=== PATIENT | female | born 1970 | race Caucasian/White ===

== ENCOUNTER 2019-01-04 21:17 | Emergency (ER) | payer SELFPAY ==
[~2019-01-04] VITALS: Ht 149.9 cm; Wt 78.0 kg
--- OUTSIDE RECORDS SUMMARY | 2019-01-04 21:20 | XMS REPORT ---
Author [facility] Address Unknown Phone Unavailable Care Team Providers Care Channel Process Supervisor Name Role Phone Aida SAMANIEGO Unavailable Unavailable Payers Payer Name Policy Type Policy Number Effective Date Expiration Date Problems This patient has no known problems. Allergies, Adverse Reactions, Alerts Allergy Name Allergy Type Status Severity Reaction(s) Onset Date Inactive Date Treating Clinician Comments No Known Allergies DA Active U 2011-05-13 00:00:00 Medications This patient has no known medications. Results Test Description Test Time Test Comments Text Results Atomic Results Result Comments CHEST SINGLE (PORTABLE) 2018-07-31 20:20:00 [place] [address] Patient Name: SAMANTHA HULL MR #: [id number] : 1970 Age/Sex: 48/F Req #: [id number] Adm Physician: Ordered by: MAGDA SAMANIEGO MD Report #: [id number] Location: ER Room/Bed: Procedure: [id number] DX/CHEST SINGLE (PORTABLE) Exam Date: 07/31/18 Exam Time: 2019 REPORT STATUS: Signed Examination: Single AP view of the chest. COMPARISON: None. INDICATION: Chest pain DISCUSSION: Lines/tubes: None. Lungs: The lungs are well inflated and clear. No pneumonia or pulmonary edema. Pleura: No pleural effusion or pneumothorax. Heart and mediastinum: The heart and the mediastinum are unremarkable. Bones and soft tissues: No acute bony abnormalities. IMPRESSION: 1. No acute cardiopulmonary abnormalities. Signed by: Dr. Darline Young M.D. on 07/31/2018 8:21 PM Dictated By: DARLINE YOUNG MD 20 Transcribed By: KEEGAN on 07/31/182020 COPY TO: MAGDA SAMANIEGO MD
[2019-01-04] MEDS ORDERED: HYDROCODONE/APAP 10MG-325MG TAB PO NR (21:45)
--- NOTE | 2019-01-04 23:32 | Diagnostic Imaging Report ---
Right knee radiographs 3 views HISTORY: Pain. COMPARISON: None available. FINDINGS: Bones: No acute displaced fracture. Osseous alignment is within normal limits. Joints: The joint spaces are well-maintained. Minimal osteophytes. Soft tissues: The soft tissues appear unremarkable. IMPRESSION: No acute radiographic osseous abnormality. Minimal degenerative changes in the knee. Signed by: Vidal Gleason DO on 01/04/2019 11:29 PM
== END 2019-01-04 23:34 | disposition home or self-care (01) ==
LOC: ER 21:17
DX: M25.561 Pain in right knee (principal); S83.511A Sprain of anterior cruciate ligament of right knee, initial encounter; X50.1XXA Overexertion from prolonged static or awkward postures, initial encounter; R26.2 Difficulty in walking, not elsewhere classified; F31.9 Bipolar disorder, unspecified
CPT/HCPCS: 99283

== ENCOUNTER 2020-02-17 12:53 | Emergency (ER) | payer SELFPAY ==
[~2020-02-17] VITALS: Ht 149.9 cm; Wt 78.0 kg
[2020-02-17] MEDS ORDERED: IBUPROFEN 600 MG TAB PO STA (13:31)
[2020-02-17] MEDS ORDERED: DIAZEPAM 5 MG TAB PO ONE (13:45)
[2020-02-17] MEDS ORDERED: HYDROCODONE/APAP 7.5MG-325MG 1 EA TAB PO PRN (13:45)
[2020-02-17] MEDS ORDERED: ULTRAM50 MG PO (15:49)
[2020-02-17] MEDS ORDERED: NAPROXEN250 MG PO (15:49)
[2020-02-17 16:02] VITALS: BP 124/70
== END 2020-02-17 16:03 | disposition home or self-care (01) ==
LOC: ER 13:40
DX: M25.511 Pain in right shoulder (principal); S46.911A Strain of unspecified muscle, fascia and tendon at shoulder and upper arm level, right arm, initial encounter; X50.0XXA Overexertion from strenuous movement or load, initial encounter; Y92.008 Other place in unspecified non-institutional (private) residence as the place of occurrence of the external cause; F31.9 Bipolar disorder, unspecified; Z85.3 Personal history of malignant neoplasm of breast; Z86.73 Personal history of transient ischemic attack (TIA), and cerebral infarction without residual deficits
CPT/HCPCS: 99283

== ENCOUNTER 2021-03-13 20:03 | Emergency (ER) | payer SELFPAY ==
[~2021-03-13] VITALS: Ht 149.9 cm; Wt 78.0 kg
[~2021-03-13 20:03] MED LIST: NAPROXEN250 MG PO; ULTRAM50 MG PO
[2021-03-13] MEDS ORDERED: TRAMADOL HCL 50 MG TAB PO STA (20:48)
[2021-03-13] MEDS ORDERED: HYDROCODONE/APAP 10MG-325MG TAB PO ONE (21:00)
[2021-03-13] MEDS ORDERED: ULTRAM 50MG50 MG PO (22:32)
== END 2021-03-13 22:39 | disposition home or self-care (01) ==
LOC: ER 20:32
DX: M25.512 Pain in left shoulder (principal); X58.XXXA Exposure to other specified factors, initial encounter; Y92.008 Other place in unspecified non-institutional (private) residence as the place of occurrence of the external cause; F31.9 Bipolar disorder, unspecified; R94.31 Abnormal electrocardiogram [ECG] [EKG]; Z85.3 Personal history of malignant neoplasm of breast; Z86.73 Personal history of transient ischemic attack (TIA), and cerebral infarction without residual deficits
CPT/HCPCS: 72125; 99283

== ENCOUNTER 2022-04-22 14:40 | Emergency (ER) | payer OTHER ==
[~2022-04-22] VITALS: Ht 149.9 cm; Wt 78.0 kg
[~2022-04-22 14:40] MED LIST changes: +ULTRAM 50MG50 MG PO
[2022-04-22] MEDS ORDERED: KETOROLAC TROMETHAMINE 30 MG/ML VIAL IM ONE (14:45)
== END 2022-04-22 16:30 | disposition home or self-care (01) ==
LOC: ER 14:43
DX: M25.512 Pain in left shoulder (principal); M25.552 Pain in left hip; M54.50 Low back pain, unspecified; W01.0XXA Fall on same level from slipping, tripping and stumbling without subsequent striking against object, initial encounter; Y92.89 Other specified places as the place of occurrence of the external cause
CPT/HCPCS: 72110; 73030; 73060; 73502; 99283; J1885